=== PATIENT | male | born 1980 | race Caucasian/White ===

== ENCOUNTER 2022-03-27 11:11 | Emergency (ER) | payer SELFPAY ==
[2022-03-27 11:41] LABS: Absolute Lymphocytes (CBC) 0.9 K/uL (0.7-4.9); Hematocrit 49.2 % (39.6-49.0); Lymphocytes % 11.9 % (15.3-44.8); MCV 88.6 fL (80-100); MPV 7.5 fL (7.6-11.3); RBC Red Blood Cell Count 5.56 M/uL (4.33-5.43)
--- NOTE | 2022-03-27 12:52 | RAD REPORT ---
EXAM DESCRIPTION: US - UPPER EXTREMITY VENOUS UNILATE - 03/27/2022 12:33 pm CLINICAL HISTORY: PAIN Arm pain and swelling. COMPARISON: No comparisons FINDINGS: Left upper extremity venous system was interrogated with Doppler technique. Normal flow, c ompressibility and augmentation was noted. There is no DVT present. IMPRESSION: No evidence of left upper extremity deep venous thrombosis.
--- NOTE | 2022-03-27 12:53 | RAD REPORT ---
EXAM DESCRIPTION: RAD - Chest Single View - 03/27/2022 11:54 am CLINICAL HISTORY: CHEST PAIN Chest pain. COMPARISON: No comparisons FINDINGS: Portable technique limits examination quality. The lungs are grossly clear. The heart is normal in size. No displaced fractures. IMPRESSION: No acute intrathoracic process suspected.
--- NOTE | 2022-03-27 12:59 | RAD REPORT ---
EXAM DESCRIPTION: CT - Chest For Pe Angio - 03/27/2022 12:38 pm CLINICAL HISTORY: Chest pain COMPARISON: None. TECHNIQUE: Dynamically enhanced axial 3 mm thick images of the chest were obtained during administra tion of <100> mL Isovue 370 IV contrast. Coronal and oblique reconstruction images were generated and reviewed. Exam utilizes a protocol for optimal evaluation of pulmonary arterial tree. Maximum intensity projections 3D imaging was utilized All CT scans are performed using dose optimization technique as appropriate and may include automated exposure control or mA/KV adjustment according to patient size. FINDINGS: A pulmonary embolus is not seen. A thoracic aortic aneurysm is not noted. A pleural effusion is not seen. A pericardial effusion is not seen. A lung consolidation is not present. Pancreas is only partially imaged and appears prominent IMPRESSION: Negative for a pulmonary embolism. Pancreas is only partially imaged and appears prominent. Ultrasound is recommended
--- NOTE | 2022-03-27 14:17 | RAD REPORT ---
EXAM DESCRIPTION: US - Abdomen Exam Limited - 03/27/2022 1:59 pm CLINICAL HISTORY: Abdominal pain. COMPARISON: CT March 27, 2022 FINDINGS: The pancreatic body and tail appear mildly prominent. However, the echotexture appears nor mal. Pancreatic duct size within normal limits. IMPRESSION: Mildly prominent pancreatic body and tail. Given that the echotexture is normal this pro bably is a normal variant. It is recommended that the patient have a follow up abdominal ultrasound i n 3 months for re-evaluation
--- NOTE | 2022-03-27 14:26 | EDPHYS ---
Physician Documentation [facility] Name: James Cavanaugh Age: 42 yrs Sex: Male : 1980 Arrival Date: 03/27/2022 Time: 11:12 Bed 14 Private MD: ED Physician Moreno Ernandez HPI: 03/27 14:20 This 42 yrs old Male presents to ER via Ambulatory with complaints of Chest Pain, rn Shoulder Pain. 14:20 The patient or guardian reports chest pain that is located primarily in the substernal rn area. Onset: 1 week(s) ago. The pain radiates to the left shoulder. Associated signs and symptoms: Pertinent negatives: abdominal pain, cough, diaphoresis, palpitations, syncope, vomiting. The chest pain is described as sharp, stabbing. Duration: The patient or guardian reports multiple episodes, that are intermittent. Modifying factors: The symptoms are alleviated by nothing. the symptoms are aggravated by nothing. Severity of pain: At its worst the pain was mild in the emergency department the pain is unchanged. The patient has not experienced similar symptoms in the past. The patient has not recently seen a physician. Pt reports intermittent chest pain that radiates to left shoulder, no trauma/cough/hemoptysis. No hx of PE. No famhx of early cardiac problems. . Historical: - Allergies: 11:19 No Known Allergies; bm7 - Home Meds: 11:19 aspirin 81 mg Oral cap 1 cap once daily [Active]; bm7 - PMHx: 11:19 DVT; bm7 - PSHx: 11:19 None; bm7 - Immunization history:: Adult Immunizations up to date, Client reports receiving the 2nd dose of the Covid vaccine, Client reports receiving the 1st dose of the Covid vaccine. - Social history:: Smoking status: Patient denies any tobacco usage or history of. - Family history:: not pertinent. - Hospitalizations: : No recent hospitalization is reported. ROS: 14:20 Constitutional: Negative for fever, chills, and weight loss, Cardiovascular: Negative rn for palpitations, and edema, Respiratory: Negative for shortness of breath, cough, wheezing Abdomen/GI: Negative for abdominal pain, nausea, vomiting, diarrhea, and constipation, Back: Negative for injury and pain, MS/Extremity: Negative for injury and deformity, Skin: Negative for injury, rash, and discoloration, Neuro: Negative for headache, weakness, numbness, tingling, and seizure. Exam: 14:20 Constitutional: This is a well developed, well nourished patient who is awake, alert, rn and in no acute distress. Ambulatory to room without difficulty. Head/Face: Normocephalic, atraumatic. Cardiovascular: Regular rate and rhythm. No pulse deficits. Respiratory: Clear bilateral breath sounds. No increased work of breathing, no retractions or nasal flaring. Abdomen/GI: Soft, non-tender Skin: Warm, dry MS/ Extremity: Pulses equal, no cyanosis. Neurovascular intact. Full, normal range of motion. Equal circumference. Neuro: Awake and alert, GCS 15 14:25 ECG was reviewed by the Attending Physician. rn Vital Signs: 11:18 BP 136 / 94; Pulse 100; Resp 16; Temp 98.0(O); Pulse Ox 98% on R/A; Weight 76.2 kg (R); bm7 Height 5 ft. 4 in. (162.56 cm); Pain 6/10; 12:00 BP 132 / 88; Pulse 96; Pulse Ox 99% ; ko1 12:46 BP 126 / 91; Pulse 78; Pulse Ox 100% ; ko1 13:30 BP 129 / 88; Pulse 79; Resp 16; Pulse Ox 99% ; ko1 14:30 BP 135 / 92; Pulse 82; ko1 11:18 Body Mass Index 28.84 (76.20 kg, 162.56 cm) bm7 MDM: 11:21 Patient medically screened. rn 14:20 Differential diagnosis: acute myocardial infarction, acute pericarditis, anxiety, rn coronary artery disease chest wall pain, costochondritis, gastroesophageal reflux disease (GERD), pancreatitis, peptic ulcer disease, pleurisy, pneumonia, pneumothorax, pulmonary embolus, stable angina. Data reviewed: vital signs, nurses notes, lab test result(s), EKG, radiologic studies, CT scan, plain films, ultrasound, and as a result, I will discharge patient. Counseling: I had a detailed discussion with the patient and/or guardian regarding: the historical points, exam findings, and any diagnostic results supporting the discharge/admit diagnosis, lab results, radiology results, the need for outpatient follow up, to return to the emergency department if symptoms worsen or persist or if there are any questions or concerns that arise at home. Response to treatment: the patient's symptoms have mildly improved after treatment, and as a result, I will discharge patient. Special discussion: Based on the patient's history, exam, and Dx evaluation, there is no indication for emergent intervention or inpatient Tx. It is understood by the patient/guardian that if the Sx's persist or worsen they need to return immediately for re-evaluation. I discussed with the patient/guardian in detail that at this point there is no indication for admission to the hospital. It is understood, however, that if the symptoms persist or worsen the patient needs to return immediately for re-evaluation. 03/27 11:22 Order name: Basic Metabolic Panel; Complete Time: 03/27 11:22 Order name: CBC with Diff; Complete Time: 03/27 11:22 Order name: NT PRO-BNP; Complete Time: :03/27 11:22 Order name: Troponin HS; Complete Time: 03/27 11:22 Order name: XRAY Chest (1 view); Complete Time: 13:03/27 11:22 Order name: EKG; Complete Time: 11:03/27 11:22 Order name: Cardiac monitoring; Complete Time: 03/27 11:22 Order name: EKG - Nurse/Tech; Complete Time: 03/27 11:22 Order name: IV Saline Lock; Complete Time: 03/27 11:29 Order name: CT Chest For PE Angio; Complete Time: 13: rn 03/27 11:33 Order name: UPPER EXTREMITY VENOUS UNILATE; Complete Time: 13:15 EDMS 03/27 13:15 Order name: US Abdomen Limited; Complete Time: 14:18 03/27 11:22 Order name: Labs collected and sent; Complete Time: 03/27 11:22 Order name: O2 Per Protocol; Complete Time: 03/27 11:22 Order name: O2 Sat Monitoring; Complete Time: rn EC:25 Rate is 81 beats/min. Rhythm is regular. QRS [place] is Normal. [place] interval is normal. QRS rn interval is normal. QT interval is normal. No Q waves. T waves are Normal. No ST changes noted. Clinical impression: Normal ECG. Interpreted by me. Reviewed by me. Administered Medications: 14:40 Drug: Ketorolac 15 mg Route: IVP; Site: right antecubital; ko1 Disposition Summary: 03/27/22 14:25 Discharge Ordered Location: Home rn Problem: new rn Symptoms: have improved rn Condition: Stable rn Diagnosis - Chest pain, unspecified rn Followup: rn - With: Private Physician - When: As needed - Reason: Recheck today's complaints, Re-evaluation by your physician Discharge Instructions: - Discharge Summary Sheet rn - Nonspecific Chest Pain, Adult rn - Pain Without a Known Cause rn Forms: - Medication Reconciliation Form rn - Thank You Letter rn - Antibiotic surg rn - Prescription Opioid Use rn Signatures: Dispatcher [employer] EDMS Moreno Ernandez MD MD rn McCarthy, Brittany RN RN bm7 Karen Huffman RN RN ko1 Corrections: (The following items were deleted from the chart) 11:32 11:30 Extremity Venous Uni [email or web address] ordered. EDMS EDMS
--- NOTE | 2022-03-27 14:26 | ER ---
Nurse's Notes [facility] Name: James Cavanaugh Age: 42 yrs Sex: Male : 1980 Arrival Date: 03/27/2022 Time: 11:12 Bed 14 Private MD: Diagnosis: Chest pain, unspecified Presentation: 03/27 11:18 Chief complaint: Patient states: I started having chest pain a week ago and now its bm7 starting to move to my left shoulder and arm. I just feel a heaviness in my chest. Coronavirus screen: At this time, the client does not indicate any symptoms associated with coronavirus-19. Ebola Screen: No symptoms or risks identified at this time. Initial Sepsis Screen: Does the patient meet any 2 criteria? No. Patient's initial sepsis screen is negative. Does the patient have a suspected source of infection? No. Patient's initial sepsis screen is negative. Risk Assessment: Do you want to hurt yourself or someone else? Patient reports no desire to harm self or others. Onset of symptoms is unknown. 11:18 Method Of Arrival: Ambulatory bm7 11:18 Acuity: KHADAR 2 bm7 Triage Assessment: 11:19 General: Appears in no apparent distress. uncomfortable, Behavior is calm, cooperative, bm7 appropriate for age. Pain: Complains of pain in chest. EENT: No deficits noted. No signs and/or symptoms were reported regarding the EENT system. Neuro: No deficits noted. Cardiovascular: Reports chest pain, Denies shortness of breath, Heart tones S1 S2 present Capillary refill < 3 seconds Patient's skin is warm and dry. Chest pain is described as mild, quality is pressure, sharp, radiates to left back is aggravated by breathing. Respiratory: No deficits noted. GI: No deficits noted. No signs and/or symptoms were reported involving the gastrointestinal system. : No deficits noted. No signs and/or symptoms were reported regarding the genitourinary system. Derm: No deficits noted. No signs and/or symptoms reported regarding the dermatologic system. Musculoskeletal: No deficits noted. No signs and/or symptoms reported regarding the musculoskeletal system. Historical: - Allergies: 11:19 No Known Allergies; bm7 - Home Meds: 11:19 aspirin 81 mg Oral cap 1 cap once daily [Active]; bm7 - PMHx: 11:19 DVT; bm7 - PSHx: 11:19 None; 7 - Immunization history:: Adult Immunizations up to date, Client reports receiving the 2nd dose of the Covid vaccine, Client reports receiving the 1st dose of the Covid vaccine. - Social history:: Smoking status: Patient denies any tobacco usage or history of. - Family history:: not pertinent. - Hospitalizations: : No recent hospitalization is reported. Screenin:30 Abuse screen: Denies threats or abuse. Denies injuries from another. Nutritional ko1 screening: No deficits noted. Tuberculosis screening: No symptoms or risk factors identified. Fall Risk None identified. Assessment: 11:30 Pain: Pain radiates to right arm Pain began. ko1 11:30 General: Appears in no apparent distress. comfortable, Behavior is calm, cooperative, ko1 appropriate for age. Neuro: No deficits noted. Cardiovascular: Reports chest pain. Respiratory: No deficits noted. GI: No deficits noted. : No signs and/or symptoms were reported regarding the genitourinary system. EENT: No deficits noted. Derm: No deficits noted. Musculoskeletal: No deficits noted. Vital Signs: 11:18 BP 136 / 94; Pulse 100; Resp 16; Temp 98.0(O); Pulse Ox 98% on R/A; Weight 76.2 kg (R); 7 Height 5 ft. 4 in. (162.56 cm); Pain 6/10; 12:00 BP 132 / 88; Pulse 96; Pulse Ox 99% ; ko1 12:46 BP 126 / 91; Pulse 78; Pulse Ox 100% ; ko1 13:30 BP 129 / 88; Pulse 79; Resp 16; Pulse Ox 99% ; ko1 14:30 BP 135 / 92; Pulse 82; ko1 11:18 Body Mass Index 28.84 (76.20 kg, 162.56 cm) 7 ED Course: 11:12 Patient arrived in ED. mr 11:19 Triage completed. bm7 11:19 Arm band placed on right wrist. bm7 11:21 Moreno Ernandez MD is Attending Physician. rn 11:30 Karen Huffman RN is Primary Nurse. ko1 11:30 Patient has correct armband on for positive identification. Bed in low position. Call ko1 light in reach. Side rails up X 1. Client placed on continuous cardiac and pulse oximetry monitoring. NIBP monitoring applied. credit risk specialist on. 11:30 No provider procedures requiring assistance completed. Patient maintains SpO2 ko1 saturation greater than 95% on room air. 11:33 Initial lab(s) drawn, by ED staff, sent to lab. Inserted saline lock: 20 gauge in right iw antecubital area, using aseptic technique. Blood collected. 11:34 Basic Metabolic Panel Sent. ko1 11:34 CBC with Diff Sent. ko1 11:34 NT PRO-BNP Sent. ko1 11:34 Troponin HS Sent. ko1 11:55 XRAY Chest (1 view) In Process Unspecified. EDMS 12:31 UPPER EXTREMITY VENOUS UNILATE In Process Unspecified. EDMS 12:40 CT Chest For PE Angio In Process Unspecified. EDMS 13:59 US Abdomen Limited In Process Unspecified. EDMS 15:01 IV discontinued, intact, bleeding controlled, No redness/swelling at site. Pressure ko1 dressing applied. Administered Medications: 14:40 Drug: Ketorolac 15 mg Route: IVP; Site: right antecubital; ko1 Medication: 11:30 VIS not applicable for this client. ko1 Outcome: 14:25 Discharge ordered by . rn 15:01 Discharged to home ambulatory, with friend. ko1 15:01 Condition: stable 15:01 Discharge instructions given to patient, Instructed on discharge instructions, follow up and referral plans. Demonstrated understanding of instructions, follow-up care. 15:03 Patient left the ED. ko1 Signatures: Dispatcher [employer] Joann Steinberg Irene, RN RN Moreno Ernandez MD MD rn McCarthy, Brittany, RN RN [employer] [facility] Karen Huffman RN RN ko1
[2022-03-27] MEDS ORDERED: KETOROLAC 30 MG/ML INJ ONE (14:33)
--- NOTE | 2022-03-28 08:30 | EKG ---
Test Date: 2022-03-27 Test Time: 11:26:07 Dowel Sander Operator: DAVIDA MEASUREMENT RESULTS: Intervals: Rate: 81 MN: 152 QRSD: 92 QT: 332 QTc: 385 [place]: P: 74 MN: 152 QRS: 77 T: 34 INTERPRETIVE STATEMENTS: Normal sinus rhythm Septal infarct, age undetermined Abnormal ECG No previous ECG available for comparison Electronically Signed On 03-28-22 08:26:50 CDT by Evan Segura
[2022-03-29 08:30] VITALS: TEMP 98
[2022-03-29 08:46] VITALS: O2SAT 99
[2022-03-29 08:47] VITALS: BP 135/92
== END 2022-03-27 15:03 | disposition home or self-care (01) ==
LOC: ER 11:11
DX: R07.89 Other chest pain (principal); Z79.82 Long term (current) use of aspirin
CPT/HCPCS: 36415; 71045; 71275; 76705; 80048; 83880; 84484; 85025; 93005; 93971; 96374; 99285; Q9967

== ENCOUNTER 2022-03-31 19:14 | Emergency (ER) | payer SELFPAY ==
--- NOTE | 2022-03-31 20:30 | RAD REPORT ---
EXAM DESCRIPTION: RAD - Chest Single View - 03/31/2022 8:20 pm CLINICAL HISTORY: CHEST PAIN Chest pain. COMPARISON: Chest Single View dated 03/27/2022 FINDINGS: Portable technique limits examination quality. The lungs are grossly clear. The heart is normal in size. No displaced fractures. IMPRESSION: No acute intrathoracic process suspected.
[2022-03-31] MEDS ORDERED: KETOROLAC 30 MG/ML INJ ONE (20:32)
[2022-03-31 20:40] LABS: Hematocrit 46.6 % (39.6-49.0); Lymphocytes % 18.8 % (15.3-44.8); MPV 7.7 fL (7.6-11.3); RBC Red Blood Cell Count 5.42 M/uL (4.33-5.43)
[2022-03-31 20:50] LABS: Potassium 3.6 mmol/L (3.5-5.1); Troponin High Sensitivity 5.9 pg/mL (<58.9)
[2022-03-31] MEDS ORDERED: dexAMETHasone 10 MG/ML VIAL ONE (22:15)
[2022-03-31 22:21] LABS: Thyroid Stimulating Hormone 3.11 uIU/mL (0.360-3.740)
--- NOTE | 2022-03-31 23:58 | EDPHYS ---
Physician Documentation [facility] Name: James Cavanaugh Age: 42 yrs Sex: Male : 1980 Arrival Date: 03/31/2022 Time: 19:16 Bed 8 Private MD: ED Physician Duke Marinelli HPI: 04/01 02:06 This 42 yrs old Male presents to ER via Ambulatory with complaints of Chest Pain > 30 snw y/o. 02:06 The patient or guardian reports chest pain that is located primarily in the substernal snw area, anterior chest wall. Onset: 2 week(s) ago, and became persistent. The pain radiates to Associated signs and symptoms: Pertinent positives: diaphoresis, dizziness. The chest pain is described as a heaviness. Duration: The patient or guardian reports multiple episodes, that are intermittent. Severity of pain: At its worst the pain was moderate in the emergency department the pain is unchanged. The patient has experienced similar episodes in the past, multiple times. The patient has been recently seen at the [facility] Emergency Department, last week, for similar complaints labs were performed, X-rays were performed, an ultrasound was performed, CT scan was performed, Previous workup normal. Pt taking Testosterone replacement, has not been taking a baby asa daily as requested.. Historical: - Allergies: 03/31 19:37 No Known Allergies; vc1 - Home Meds: 19:37 gabapentin oral [Active]; aprazolam [Active]; aspirin 81 mg Oral cap 1 cap once daily vc1 [Active]; - PMHx: 19:37 DVT; Diverticulitis; neuropathy; Anxiety; vc1 - PSHx: 19:37 None; vc1 - Immunization history:: Adult Immunizations up to date, Client reports receiving the 1st dose of the Covid vaccine. - Social history:: Smoking status: Patient denies any tobacco usage or history of. ROS: 04/01 02:05 Constitutional: Negative for fever, chills, and weight loss, Eyes: Negative for injury, snw pain, redness, and discharge, ENT: Negative for injury, pain, and discharge, Neck: Negative for injury, pain, and swelling. Abdomen/GI: Negative for abdominal pain, nausea, vomiting, diarrhea, and constipation, Back: Negative for injury and pain, : Negative for injury, bleeding, discharge, and swelling, MS/Extremity: Negative for injury and deformity. Neuro: Negative for headache, weakness, numbness, tingling, and seizure. Cardiovascular: Positive for chest pain, with movement, orthopnea. Respiratory: Positive for feels difficult to take a deep breath. Skin: Positive for waking up in a sweat. Psych: Positive for anxiety. Exam: 02:01 Constitutional: This is a well developed, well nourished patient who is awake, alert, snw and in no acute distress. Head/Face: Normocephalic, atraumatic. Eyes: Pupils equal round and reactive to light, extra-ocular motions intact. Lids and lashes normal. Conjunctiva and sclera are non-icteric and not injected. Cornea within normal limits. Periorbital areas with no swelling, redness, or edema. ENT: Nares patent. No nasal discharge, no septal abnormalities noted. Tympanic membranes are normal and external auditory canals are clear. Oropharynx with no redness, swelling, or masses, exudates, or evidence of obstruction, uvula midline. Mucous membranes moist. Neck: Trachea midline, no thyromegaly or masses palpated, and no cervical lymphadenopathy. Supple, full range of motion without nuchal rigidity, or vertebral point tenderness. No Meningismus. Chest/axilla: Normal chest wall appearance and motion. Nontender with no deformity. No lesions are appreciated. Cardiovascular: Regular rate and rhythm with a normal S1 and S2. No gallops, murmurs, or rubs. Normal PMI, no JVD. No pulse deficits. Respiratory: Lungs have equal breath sounds bilaterally, clear to auscultation and percussion. No rales, rhonchi or wheezes noted. No increased work of breathing, no retractions or nasal flaring. Abdomen/GI: Soft, non-tender, with normal bowel sounds. No distension or tympany. No guarding or rebound. No evidence of tenderness throughout. Back: No spinal tenderness. No costovertebral tenderness. Full range of motion. Skin: Warm, dry with normal turgor. Normal color with no rashes, no lesions, and no evidence of cellulitis. MS/ Extremity: Pulses equal, no cyanosis. Neurovascular intact. Full, normal range of motion. Neuro: Awake and alert, GCS 15, oriented to person, place, time, and situation. Cranial nerves II-XII grossly intact. Motor strength 5/5 in all extremities. Sensory grossly intact. Cerebellar exam normal. Normal gait. 02:01 Psych: Behavior/mood is anxious, Affect is calm. Vital Signs: 03/31 19:34 BP 121 / 84; Pulse 74; Resp 17; Temp 99.1; Pulse Ox 98% ; Weight 74.84 kg; Height 5 ft. vc1 6 in. (167.64 cm); Pain 6/10; 21:00 BP 120 / 80; Pulse 67; Resp 16 S; Pulse Ox 96% on R/A; aa9 21:30 BP 110 / 83; Pulse 65; Resp 16 S; Pulse Ox 96% on R/A; aa9 22:30 BP 114 / 82; Pulse 61; Resp 16 S; Pulse Ox 94% on R/A; aa9 23:30 BP 115 / 77; Pulse 81; Resp 17; Pulse Ox 95% on R/A; jb4 19:34 Body Mass Index 26.63 (74.84 kg, 167.64 cm) vc1 MDM: 20:08 Patient medically screened. snw 04/01 02:08 The patient was not given aspirin in the Emergency Department. Data reviewed: vital snw signs, nurses notes. Data interpreted: Pulse oximetry: on room air is 95 %. Interpretation: acceptable. Counseling: I had a detailed discussion with the patient and/or guardian regarding: the historical points, exam findings, and any diagnostic results supporting the discharge/admit diagnosis, lab results, radiology results, the need for outpatient follow up, to return to the emergency department if symptoms worsen or persist or if there are any questions or concerns that arise at home. Response to treatment: the patient's symptoms have mildly improved after treatment, the patient's symptoms have markedly improved after treatment. Special discussion: Based on the patient's history, exam, and Dx evaluation, there is no indication for emergent intervention or inpatient Tx. It is understood by the patient/guardian that if the Sx's persist or worsen they need to return immediately for re-evaluation. Based on the history and exam findings, there is no indication for further emergent testing or inpatient evaluation. I discussed with the patient/guardian the need to see the residential sales associate for further evaluation of the symptoms. I discussed with the patient/guardian the need to see the primary care provider for further evaluation of the symptoms. 03/31 20:04 Order name: Basic Metabolic Panel [facility] 03/31 20:04 Order name: CBC with Diff [facility] 03/31 20:04 Order name: Troponin HS [facility] 03/31 20:42 Order name: CBC with Automated Diff; Complete Time: 20:50 EDMS 03/31 20:51 Order name: Basic Metabolic Panel; Complete Time: 23:03 EDMS 03/31 20:51 Order name: Troponin High Sensitivity; Complete Time: 23:03 EDMS 03/31 20:04 Order name: XRAY Chest (1 view) [facility] 03/31 20:31 Order name: RAD; Complete Time: 20:50 EDMS 03/31 21:59 Order name: Add On-Lab snw 03/31 22:22 Order name: Thyroid Stimulating Hormone; Complete Time: 23:03 EDMS 03/31 22:37 Order name: Add On-Lab snw 03/31 22:59 Order name: Lipase; Complete Time: 23:03 EDMS 03/31 20:04 Order name: EKG; Complete Time: 20:05 [facility] 03/31 20:04 Order name: Cardiac monitoring; Complete Time: 20:04 [facility] 03/31 20:04 Order name: EKG - Nurse/Tech; Complete Time: 20:04 [facility] 03/31 20:04 Order name: IV Saline Lock; Complete Time: 20:04 [facility] 03/31 20:04 Order name: Labs collected and sent; Complete Time: 20:13 [facility] 03/31 20:04 Order name: O2 Per Protocol; Complete Time: 20:04 [facility] 03/31 20:04 Order name: O2 Sat Monitoring; Complete Time: 20:04 [facility] EC/02 19:55 Rate is 63 beats/min. Rhythm is regular. QRS [place] is Normal. AR interval is normal. Q snw waves are Present in leads aVL, aVR, V1, V2. T waves are Inverted. T waves are Flattened. Clinical impression: NSR w/ Non-specific ST/T Changes and Septal WI - age indeterminate. Administered Medications: 20:36 Drug: Ketorolac 30 mg Route: IVP; Site: right forearm; 4 21:00 Follow up: Response: No adverse reaction; Marked relief of symptoms jb4 22:31 Drug: Decadron - Dexamethasone 10 mg Route: IVP; Site: right forearm; jb4 23:00 Follow up: Response: No adverse reaction jb4 Disposition Summary: 03/31/22 23:57 Discharge Ordered Location: Home snw Condition: Stable snw Diagnosis - Chest pain, unspecified snw Followup: snw - With: Emergency Department - When: As needed - Reason: Worsening of condition Followup: snw - With: Private Physician - When: 1 - 2 days - Reason: Recheck today's complaints, Continuance of care, Re-evaluation by your physician Discharge Instructions: - Discharge Summary Sheet snw - Nonspecific Chest Pain, Adult snw - Aspirin and Your Heart snw - Testosterone Replacement Therapy snw Forms: - Medication Reconciliation Form snw - Thank You Letter snw - Antibiotic Education snw - Prescription Opioid Use snw - Work release form jb4 Signatures: Dispatcher [employer] EDMS Siobhan Ceballos FNP-C NETBACKUP ADMIN-Csnw Alexander Ocampo, RN RN jb4 Re Guadarrama RN RN vc1
--- NOTE | 2022-03-31 23:58 | ER ---
Nurse's Notes [facility] Name: James Cavanaugh Age: 42 yrs Sex: Male : 1980 Arrival Date: 03/31/2022 Time: 19:16 Bed 8 Private MD: Diagnosis: Chest pain, unspecified Presentation: 03/31 19:34 Chief complaint: Patient states: "I came in here a couple days ago with chest pain they vc1 thought they seen something on my spleen but my heart was ok. Now it feels like the pain is worse at work when I was moving around but then it got better. Last night I was really sweaty and I just feel something just isn't right.". Coronavirus screen: Vaccine status: Patient reports receiving the 1st dose of the Covid vaccine. Moderna At this time, the client does not indicate any symptoms associated with coronavirus-19. Ebola Screen: No symptoms or risks identified at this time. Initial Sepsis Screen: Does the patient meet any 2 criteria? No. Patient's initial sepsis screen is negative. Does the patient have a suspected source of infection? No. Patient's initial sepsis screen is negative. Risk Assessment: Do you want to hurt yourself or someone else? Patient reports no desire to harm self or others. Onset of symptoms is unknown. 19:34 Method Of Arrival: Ambulatory vc1 19:34 Acuity: KHADAR 3 vc1 Triage Assessment: 19:37 General: Appears uncomfortable, ill, Behavior is cooperative, anxious. Pain: Complains vc1 of pain in chest Pain radiates to back Pain currently is 6 out of 10 on a pain scale. at worst was 10 out of 10 on a pain scale. Quality of pain is described as stabbing, Alleviated by rest, movement Aggravated by increased activity. EENT: No deficits noted. Neuro: No deficits noted. Cardiovascular: Reports chest pain, diaphoresis, fatigue, nausea, shortness of breath. Respiratory: Airway is patent Respiratory effort is even, unlabored, Respiratory pattern is regular, symmetrical. GI: No signs and/or symptoms were reported involving the gastrointestinal system. : No signs and/or symptoms were reported regarding the genitourinary system. Derm: No signs and/or symptoms reported regarding the dermatologic system. Musculoskeletal: No signs and/or symptoms reported regarding the musculoskeletal system. Historical: - Allergies: 19:37 No Known Allergies; vc1 - Home Meds: 19:37 gabapentin oral [Active]; aprazolam [Active]; aspirin 81 mg Oral cap 1 cap once daily vc1 [Active]; - PMHx: 19:37 DVT; Diverticulitis; neuropathy; Anxiety; vc1 - PSHx: 19:37 None; vc1 - Immunization history:: Adult Immunizations up to date, Client reports receiving the 1st dose of the Covid vaccine. - Social history:: Smoking status: Patient denies any tobacco usage or history of. Screenin:42 Abuse screen: Denies threats or abuse. Nutritional screening: No deficits noted. vc1 Tuberculosis screening: No symptoms or risk factors identified. Fall Risk None identified. Assessment: 19:50 General: Appears in no apparent distress. uncomfortable, Behavior is calm, cooperative, jb4 appropriate for age. Pain: Complains of pain in chest Pain radiates to back Pain currently is 9 out of 10 on a pain scale. Neuro: Level of Consciousness is awake, alert, obeys commands, Oriented to person, place, time, situation. Cardiovascular: Patient's skin is warm and dry. Respiratory: Airway is patent Respiratory effort is even, unlabored, Respiratory pattern is regular, symmetrical. GI: No signs and/or symptoms were reported involving the gastrointestinal system. : No signs and/or symptoms were reported regarding the genitourinary system. EENT: No signs and/or symptoms were reported regarding the EENT system. Derm: Skin is intact, Skin is pink, warm \\T\\ dry. Musculoskeletal: Circulation, motion, and sensation intact. Range of motion: intact in all extremities. 21:00 Reassessment: Patient appears in no apparent distress at this time. Patient and/or jb4 family updated on plan of care and expected duration. Pain level reassessed. Patient is alert, oriented x 3, equal unlabored respirations, skin warm/dry/pink. 22:00 Reassessment: Patient appears in no apparent distress at this time. Patient and/or jb4 family updated on plan of care and expected duration. Pain level reassessed. Patient is alert, oriented x 3, equal unlabored respirations, skin warm/dry/pink. 22:57 Reassessment: Patient appears in no apparent distress at this time. Patient and/or jb4 family updated on plan of care and expected duration. Pain level reassessed. Patient is alert, oriented x 3, equal unlabored respirations, skin warm/dry/pink. 23:53 Reassessment: Patient appears in no apparent distress at this time. Patient and/or jb4 family updated on plan of care and expected duration. Pain level reassessed. Patient is alert, oriented x 3, equal unlabored respirations, skin warm/dry/pink. Vital Signs: 19:34 BP 121 / 84; Pulse 74; Resp 17; Temp 99.1; Pulse Ox 98% ; Weight 74.84 kg; Height 5 ft. vc1 6 in. (167.64 cm); Pain 6/10; 21:00 BP 120 / 80; Pulse 67; Resp 16 S; Pulse Ox 96% on R/A; aa9 21:30 BP 110 / 83; Pulse 65; Resp 16 S; Pulse Ox 96% on R/A; aa9 22:30 BP 114 / 82; Pulse 61; Resp 16 S; Pulse Ox 94% on R/A; aa9 23:30 BP 115 / 77; Pulse 81; Resp 17; Pulse Ox 95% on R/A; jb4 19:34 Body Mass Index 26.63 (74.84 kg, 167.64 cm) vc1 ED Course: 19:16 Patient arrived in ED. bp1 19:37 Triage completed. vc1 19:41 Arm band placed on right wrist. vc1 19:44 Hannah Randhawa, RN is Primary Nurse. aa9 19:50 Initial lab(s) drawn, by me, sent to lab. Inserted saline lock: 18 gauge in right jb4 forearm, using aseptic technique. Blood collected. Patient maintains SpO2 saturation greater than 95% on room air. 20:06 Siobhan Ceballos FNP-C is PHCP. snw 20:06 Duke Marinelli MD is Attending Physician. snw 20:28 Basic Metabolic Panel Sent. aa9 20:28 CBC with Diff Sent. aa9 20:28 Troponin HS Sent. aa9 04/01 00:10 No provider procedures requiring assistance completed. IV discontinued, intact, jb4 bleeding controlled, No redness/swelling at site. Pressure dressing applied. Administered Medications: 03/31 20:36 Drug: Ketorolac 30 mg Route: IVP; Site: right forearm; jb4 21:00 Follow up: Response: No adverse reaction; Marked relief of symptoms jb4 22:31 Drug: Decadron - Dexamethasone 10 mg Route: IVP; Site: right forearm; jb4 23:00 Follow up: Response: No adverse reaction jb4 Medication: 04/01 00:36 VIS not applicable for this client. jb4 Outcome: 03/31 23:57 Discharge ordered by MD. manzanares 04/01 00:15 Discharged to home ambulatory, with family. jb4 Condition: stable Discharge instructions given to patient, family, Instructed on discharge instructions, follow up and referral plans. Demonstrated understanding of instructions, follow-up care. 00:36 Patient left the ED. jb4 Signatures: Siobhan Ceballos, CLOCK MECHANIC-C CLOCK MECHANIC-Csnw Alexander Ocampo, RN RN jb4 Tata Dimas Vanessa RN RN vc1 Hannah Randhawa RN RN aa9
[2022-04-01 00:45] VITALS: TEMP 99.1
[2022-04-01 00:51] VITALS: BP 115/77; O2SAT 95
--- NOTE | 2022-04-02 06:27 | EKG ---
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
== END 2022-04-01 00:36 | disposition home or self-care (01) ==
LOC: ER 19:14
DX: R07.9 Chest pain, unspecified (principal); G62.9 Polyneuropathy, unspecified; F41.9 Anxiety disorder, unspecified
CPT/HCPCS: 36415; 71045; 80048; 83690; 84443; 84484; 85025; 93005; 96374; 96375; 99284; J1100